=== PATIENT | female | born 1950 | race Caucasian/White ===

== ENCOUNTER 2021-11-01 10:23 | Outpatient (CLI) | payer OTHER ==
[2021-11-01 11:32] LABS: #Basophils 0.1 10x3/uL (0.0-0.2); #Eosinphils 0.1 10x3/uL (0.0-0.5); #Monocytes 0.5 10x3/uL (0.0-1.1); #Neutrophils 4.4 10x3/uL (1.5-8.4); %Basophils 1.4 % (0.0-2.0); %Eosinophils 1.7 % (0.0-6.0); %Lymphocytes 26.2 % (18.0-47.0); %Monocytes 6.4 % (0.0-10.0); %Neutrophils 63.4 % (40.0-75.0); Hemoglobin 13.9 g/dL (12.0-15.5); Mean Corpuscular HGB CONC 32.1 g/dL (32.0-36.0); Mean Corpuscular Hemoglobin 29.4 pg (27.0-33.0); Mean Corpuscular Volume 91.5 fl (81.6-98.3); Mean Platelet Volume 10.3 fl (7.4-10.4); Platelet Count 321 10x3/uL (150-450); RBC Distribution Width 13.2 % (11.5-14.5); Red Blood Cell (RBC) Count 4.73 10x6/uL (3.90-5.03)
[2021-11-01 11:43] LABS: ALT (SGPT) 19 U/L (8-55); AST (SGOT) 18 U/L (5-34); Albumin 4.4 g/dL (3.4-4.8); Alkaline Phosphatase 76 U/L (40-110); Anion Gap 18 mmol/L (10-20); BUN (Urea Nitrogen) 15 mg/dL (9.8-20.1); Bilirubin, Total 0.7 mg/dL (0.2-1.2); Calc. Creatinine Clearance 0 mL/min (70-130); Calcium 10.6 mg/dL (7.8-10.44); Carbon Dioxide 28 mmol/L (23-31); Chloride 99 mmol/L (98-107); Globulin 2.5 g/dL (2.4-3.5); Glucose 192 mg/dL (80-115); Potassium 4.6 mmol/L (3.5-5.1); Protein, Total 6.9 g/dL (5.8-8.1); Sodium 140 mmol/L (136-145)
[2021-11-01 21:43] LABS: SARS-CoV-2 PCR by NAA Not Detected (NotDetected)
== END 2021-11-01 10:24 | disposition home or self-care (01) ==
LOC: LABBT 10:23
PROVIDERS: ATTEND Specialist
DX: Z01.818 Encounter for other preprocedural examination (principal); Z20.822 Contact with and (suspected) exposure to COVID-19
CPT/HCPCS: 80053; 85025; 93005; 93010; U0003; U0005

== ENCOUNTER 2021-11-02 13:21 | Day surgery (SDC) | payer MEDICARE ==
[2021-11-01 11:24] VITALS: BMI 42.3
[2021-11-02] MEDS ORDERED: Acetaminophen 500 MG TAB ONE (13:45)
[2021-11-02] MEDS ORDERED: Ketorolac Tromethamine 30 MG/ML VIAL ONE (13:45)
[2021-11-02] MEDS ORDERED: Midazolam HCl 2 mg/2 ml Vial ONE ×2 (15:01→16:34)
[2021-11-02] MEDS ORDERED: EPINEPHrine 1 MG/ML AMP ONE (16:01)
[2021-11-02] MEDS ORDERED: Bupivacaine PF 0.5% 30 ML VIAL ONE (16:01)
[2021-11-02] MEDS ORDERED: Iopamidol 30 ML ONE (16:01)
[2021-11-02] MEDS ORDERED: Fentanyl 250 MCG/5 ML VIAL ONE (16:34)
[2021-11-02] MEDS ORDERED: CEFAZOLIN 2 GM VIAL ONE (16:36)
[2021-11-02] MEDS ORDERED: Sodium Chloride 0.9% 100 ML ONE (16:36)
[2021-11-02] MEDS ORDERED: Lidocaine 1% PF 5 ML VIAL ONE (16:43)
[2021-11-02] MEDS ORDERED: Rocuronium Bromide 10 MG/ML (10ML VIAL) ONE (16:43)
[2021-11-02] MEDS ORDERED: Ondansetron PF 4 MG/2 ML Vial ONE (16:43)
[2021-11-02] MEDS ORDERED: ePHEDrine 50 MG/ML VIAL ONE (16:43)
[2021-11-02] MEDS ORDERED: Glycopyrrolate 0.2 MG/ML 5 ML SYRINGE ONE (16:43)
[2021-11-02] MEDS ORDERED: PROPOFOL 200 MG/20 ML VIAL ONE (16:43)
[2021-11-02] MEDS ORDERED: fentaNYL Citrate/PF 100 MCG/2 ML SYRINGE ONE (17:53)
[2021-11-02] MEDS ORDERED: HYDROcodone/Acetaminophen 5/325 mg Tablet ONE (18:40)
== END 2021-11-02 19:35 | disposition home or self-care (01) ==
LOC: SDC 13:21
PROVIDERS: ATTEND Specialist
PROC: 0FT44ZZ Resection of Gallbladder, Percutaneous Endoscopic Approach (ICD-10-PCS; principal; 2021-11-02)
PROC: BF101ZZ Fluoroscopy of Bile Ducts using Low Osmolar Contrast (ICD-10-PCS; 2021-11-02)
DX: K80.10 Calculus of gallbladder with chronic cholecystitis without obstruction (principal); I10 Essential (primary) hypertension; E78.5 Hyperlipidemia, unspecified; E11.9 Type 2 diabetes mellitus without complications; E78.00 Pure hypercholesterolemia, unspecified; M19.90 Unspecified osteoarthritis, unspecified site; E66.01 Morbid (severe) obesity due to excess calories; Z68.41 Body mass index [BMI] 40.0-44.9, adult; Z79.1 Long term (current) use of non-steroidal anti-inflammatories (NSAID); Z79.84 Long term (current) use of oral hypoglycemic drugs; Z79.899 Other long term (current) drug therapy; Z88.2 Allergy status to sulfonamides; Z88.7 Allergy status to serum and vaccine
CPT/HCPCS: 47532; 47563; C1713; J1610; 88304; J0171; J1885; J2250; J2405; J2704; J3010; J3490; Q9967; S0020